=== PATIENT | male | born 1985 | race Caucasian/White ===

== ENCOUNTER 2018-06-13 14:33 | Emergency (ER) | payer OTHER ==
[~2018-06-13] VITALS: Ht 162.6 cm; Wt 61.6 kg
[2018-06-13 14:48] VITALS: Ht 162.6 cm; Wt 61.6 kg
[2018-06-13] MEDS ORDERED: ASPIRIN 325 MG TAB PO STA (17:32)
[2018-06-13] MEDS ORDERED: NAPR-985 PO (19:53)
[2018-06-13 20:17] VITALS: BP 130/60; PULSE 74; RESP 18
--- NOTE | 2018-06-14 01:57 | ERD ---
ER Documentation Chief Complaint Chief Complaint ABD PAIN RADIATING TO BACK X 1 DAY HPI 32 year-old [male] coming in today with Chief Complaint: chest pain History of Present Illness: Patient reporting left-sided chest pain, patient points to left side under ribs, not over heart. Patient reports pain as soreness, gradual onset, 5/10. 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 Review of systems: All systems were reviewed and are negative except for what is indicated in the history of present illness. Past Medical History: Hypertension, hyperlipidemia, hypertriglyceridemia; positive surgical history includes lithotripsy Social History: Denies tobacco and illicit drug use, positive alcohol use socially Medications: [Reviewed as documented Nursing Notes]; she reports supposed to be on medication for high glycerides and hyperlipidemia and hypertension but has been noncompliant Allergies: [NKDA] Social Concerns: Denies ROS All systems reviewed and are negative except as per history of present illness. Medications Home Meds Active Scripts Naproxen* (Naprosyn*) 500 Mg Tablet, 500 MG PO BID PRN for PAIN AND/OR INFLAMMATION, #30 TAB Prov:CELIA LÓPEZ NP 06/13/18 Allergies Allergies: Coded Allergies: No Known Allergy (Unverified , 06/13/18) PMhx/Soc Medical and Surgical Hx: pt denies Medical Hx, pt denies Surgical Hx Hx Alcohol Use: Yes (OCCASSIONAL) Hx Substance Use: No Hx Tobacco Use: No Smoking Status: Never smoker FmHx Family History: diabetes; No coronary disease Physical Exam Vitals Vital Signs Date Temp Pulse Resp B/P (MAP) Pulse Ox O2 O2 Flow FiO2 Time Delivery Rate 06/13/18 98.6 74 18 130/60 100 Room Air 20:17 (83) 06/13/18 97.4 106 18 144/71 100 14:48 (95) Physical Exam Const: No acute distress Head: Atraumatic Eyes: Normal Conjunctiva ENT: Normal External Ears, Nose and Mouth. Neck: Full range of motion. No meningismus. Resp: Clear to auscultation bilaterally Cardio: Regular rate and rhythm, no murmurs. No tenderness to palpation over chest and ribs. Abd: Soft, non tender, non distended. Normal bowel sounds. No grimacing during exam. Skin: No petechiae or rashes Back: No midline or flank tenderness. No CVA tenderness. No tenderness to palpation to midline or paraspinal or musculoskeletal back. Ext: No cyanosis, or edema Neur: Awake and alert Psych: Normal Mood and Affect Result Diagram: 06/13/18 1741 06/13/18 1741 Results 24 hrs Laboratory Tests Test 06/13/18 17:41 06/13/18 17:47 White Blood Count 8.5 10^3/ul Red Blood Count 5.60 10^6/ul Hemoglobin 16.7 g/dl Hematocrit 48.5 % Mean Corpuscular Volume 86.6 fl Mean Corpuscular Hemoglobin 29.8 pg Mean Corpuscular Hemoglobin Concent 34.4 g/dl Red Cell Distribution Width 11.9 % Platelet Count 340 10^3/UL Mean Platelet Volume 10.0 fl Immature Granulocytes % 0.400 % Neutrophils % 45.0 % Lymphocytes % 39.6 % Monocytes % 6.4 % Eosinophils % 8.0 % Basophils % 0.6 % Nucleated Red Blood Cells % 0.0 /100WBC Immature Granulocytes # 0.030 10^3/ul Neutrophils # 3.8 10^3/ul Lymphocytes # 3.4 10^3/ul Monocytes # 0.5 10^3/ul Eosinophils # 0.7 10^3/ul Basophils # 0.1 10^3/ul Nucleated Red Blood Cells # 0.0 10^3/ul Erythrocyte Sedimentation Rate 2 mm/Hr Sodium Level 144 mmol/L Potassium Level 4.0 mmol/L Chloride Level 105 mmol/L Carbon Dioxide Level 26 mmol/L Anion Gap 13 Blood Urea Nitrogen 12 mg/dl Creatinine 1.10 mg/dl Est Glomerular Filtrat Rate mL/min > 60 mL/min Glucose Level 101 mg/dl Calcium Level 9.9 mg/dl Creatine Kinase 115 IU/L Creatine Kinase Index 0.2 Creatinine Kinase MB (Mass) 0.28 ng/ml Troponin I < 0.012 ng/ml C-Reactive Protein < 0.5 mg/dl Triglycerides Level 162 mg/dl Cholesterol Level 197 mg/dl LDL Cholesterol, Calculated 123 mg/dl HDL Cholesterol 42 mg/dl Cholesterol/HDL Ratio 4.6 RATIO Urine Color YELLOW Urine Clarity CLEAR Urine pH 6.0 Urine Specific [place] 1.019 Urine Ketones NEGATIVE mg/dL Urine Nitrite NEGATIVE mg/dL Urine Bilirubin NEGATIVE mg/dL Urine Urobilinogen NEGATIVE mg/dL Urine Leukocyte Esterase NEGATIVE Cesar/ul Urine Hemoglobin NEGATIVE mg/dL Urine Glucose NEGATIVE mg/dL Urine Total Protein NEGATIVE mg/dl Current Medications Medications Dose Sig/Lucinda Start Time Status Last (Trade) Ordered Route PRN Stop Time Admin Dose Reason Admin Aspirin 325 mg ONCE STAT 06/13/18 DC 06/13/18 (Aspirin) PO 17:32 06/13/18 17:39 17:36 Procedures/MDM ED course includes a thorough examination and history. ED course includes labs; CBC, CMP, troponin, CK, BMP, ESR, CRP, urinalysis, lipid panel. ED course includes EKG. ED course includes imaging; chest x-ray. Low suspicion for cardio vascular or pulmonary medical emergency or life- threatening medical emergency. Otherwise healthy patient presenting with constellation of symptoms likely representing uncomplicated chest wall pain as characterized by history, physical exam findings [radiologic/lab findings]. Chest x-ray unremarkable. All labs within normal limits. Troponin negative. Inflammatory markers negative. Elevated triglycerides ---- EKG: Rate/Rhythm: Normal Sinus Rhythm QRS, ST, T-waves: No changes consistent w/ acute ischemia Impression: No evidence of ischemia or arrhythmia ---- Patient reassessment at 2202: Patient updated on results of testing. present. No changes in patient condition. Vital signs stable, no acute distre ss. Reports decrease in pain with aspirin. Reported to follow-up with primary care doctor for further evaluation. Return precautions given. Disposition given. Pain is nonreproducible, patient reports does not feel like his usual kidney stones. No respiratory distress, otherwise relatively well appearing and nontoxic. Patient educated on diagnoses, prescriptions, follow-up care, return precau tions. Strict return precautions given for worsening condition; questions answered discharge. Disposition for discharge with followup in 2-3 days with PCP/clinic. Departure Diagnosis: Primary Impression: Chest wall pain Condition: Stable Patient Instructions: Chest Wall Pain, Costochondritis, Chest Wall Strain Additional Instructions: Call your primary care doctor TOMORROW for an appointment during the next 2-3 days.See the doctor sooner or return here if your condition worsens before your appointment time. Return to ER for severe abdominal pain, chest pain, palpitations, nausea, vomiting, or any other changes in patient condition that appears to be worsening. CELIA LÓPEZ NP Jun 14, 2018 01:57
== END 2018-06-13 20:23 | disposition home or self-care (01) ==
LOC: FTE 14:33
DX: R07.89 Other chest pain (principal); I10 Essential (primary) hypertension
CPT/HCPCS: 36415; 71045; 80048; 80061; 81003; 82550; 82553; 84484; 85025; 85651; 86140; 93005; Z7502; Z7610